=== PATIENT | male | born 1955 | race Hispanic/Latino ===

== ENCOUNTER → 2018-12-21 | Outpatient (CLI) | payer OTHER ==
--- NOTE | 2018-12-21 10:51 | Diagnostic Imaging Report ---
EXAM: US ABDOMEN COMPLETE INDICATION: Elevated alkaline phosphatase. COMPARISON: None TECHNIQUE: Transverse and longitudinal tran scale and color doppler sonographic images of the abdomen were obtained. FINDINGS: LIVER Measures 12.3 cm in the right midclavicular line. Normal echogenicity of the liver with normal contour, no masses. SPLEEN 7.0 cm in maximum diameter. Normal echogenicity, no masses. GALLBLADDER No gallbladder wall thickening, distension, stone, or pericholecystic fluid. Negative reported sonographic King's sign. BILE DUCTS No intra nor extra-hepatic biliary dilation. Common bile duct measures 0.3 cm PANCREAS: Bowel gas obscures visualization of the pancreas. RIGHT KIDNEY: 10.5 cm Echogenicity: Normal Collecting System: No hydronephrosis Stones: None Cyst/Mass: None LEFT KIDNEY: 9.8 cm Echogenicity: Normal Collecting System: No hydronephrosis Stones: None Cyst/Mass: None VESSELS: Aorta: Bowel gas obscures visualization of the aorta. Inferior Vena Cava: Visualized portions are normal Main Portal Vein: 1.0 cm, normal size with hepatopetal flow. FREE FLUID: None IMPRESSION: Bowel gas obscures visualization of the pancreas and aorta. Otherwise, unremarkable abdominal ultrasound. Signed by: Dr. Tere Claudio MD on 12/21/2018 10:48 AM
--- NOTE | 2018-12-21 11:00 | Diagnostic Imaging Report ---
Exam: Pelvic ultrasound. History: Groin mass, elevated alkaline phosphatase. Comparison: None. Findings: In the area of clinical concern in the left groin, no sonographic evidence of mass. Comparison images of the right groin are unremarkable. The bladder is partially decompressed. The bladder volume is 29.8 cc. The prostate volume is enlarged in size, measuring up to 5.1 cm, with an estimated volume of 38.2 cc. Impression: No sonographic evidence of mass in the area of clinical concern in the left groin. Prostatomegaly. Signed by: Dr. Tere Claudio MD on 12/21/2018 10:56 AM
== END ==
LOC: US 08:27
PROVIDERS: ATTEND Family Medicine
DX: R19.00 Intra-abdominal and pelvic swelling, mass and lump, unspecified site (principal); R74.8 Abnormal levels of other serum enzymes
CPT/HCPCS: 76700; 76856